=== PATIENT | male | born 1950 | race Caucasian/White ===

== ENCOUNTER 2019-05-03 06:00 | Outpatient (RCR) | payer MEDICARE, OTHER, SELFPAY | END 2019-06-02 00:01 | LOC: APT 06:00 | PROVIDERS: Family Provider Family Medicine; Visit Provider Orthopaedic Surgery | DX: Z47.1 Aftercare following joint replacement surgery (principal); Z96.641 Presence of right artificial hip joint | CPT/HCPCS: 97110 ×5; 97164; 97530 ==

== ENCOUNTER 2019-06-03 06:00 | Outpatient (RCR) | payer MEDICARE, OTHER, SELFPAY | END 2019-07-03 23:59 | disposition home or self-care (01) | LOC: APT 06:00 | PROVIDERS: Family Provider Nurse Practitioner Family; PCP Nurse Practitioner Family; Visit Provider Orthopaedic Surgery | DX: Z96.641 Presence of right artificial hip joint (principal) | CPT/HCPCS: 97110; 97530 ==

== ENCOUNTER → 2019-12-22 10:14 | Outpatient (BNVA) | payer MEDICARE, OTHER, SELFPAY | PROVIDERS: Family Provider Nurse Practitioner Family; PCP Family Medicine; Visit Provider Nurse Practitioner Family | DX: E11.9 Type 2 diabetes mellitus without complications (principal); E78.5 Hyperlipidemia, unspecified; Z12.11 Encounter for screening for malignant neoplasm of colon; Z87.39 Personal history of other diseases of the musculoskeletal system and connective tissue; Z12.5 Encounter for screening for malignant neoplasm of prostate | CPT/HCPCS: 80053; 80061; 83036; 84550; 85025; G0103 ==

== ENCOUNTER → 2021-01-18 09:00 | Outpatient (BNVA) | payer MEDICARE, OTHER, SELFPAY | PROVIDERS: Family Provider Nurse Practitioner Family; PCP Family Medicine; Visit Provider Nurse Practitioner Family | DX: Z00.00 Encounter for general adult medical examination without abnormal findings (principal); E11.9 Type 2 diabetes mellitus without complications; Z87.39 Personal history of other diseases of the musculoskeletal system and connective tissue; E78.5 Hyperlipidemia, unspecified; E55.9 Vitamin D deficiency, unspecified; Z12.5 Encounter for screening for malignant neoplasm of prostate; N18.30 Chronic kidney disease, stage 3 unspecified | CPT/HCPCS: 80053; 80061; 82043; 82306; 83036; 84443; 84550; 85025; G0103 ==

== ENCOUNTER 2023-01-09 07:04 | Emergency (ER) | payer MEDICARE, OTHER, SELFPAY ==
[2023-01-09 07:16] VITALS: BMI 31.5
[2023-01-09 07:20] VITALS: BP 167/102; PULSE 72; RESP 16; TEMP 36.8; O2SAT 99
--- NOTE | 2023-01-09 07:25 | ED_ITS ---
HPI - Extremity Problem General: Chief complaint: Extremity Problem,Nontraumatic Stated complaint: right hip pain Time Seen by Provider: 01/09/23 07:15 Source: patient Mode of arrival: ambulatory Limitations: no limitations History of Present Illness: Patient is a 72-year-old male with past medical history of chronic kidney disease who presents to the emergency room complaining of right hip pain onset 1.5 weeks ago. Patient reports a prior hip replacement approximately 1 year ago, where he completed physical therapy and rehabilitation following the procedure with no complication. 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 The pain has been constant since but he is able to relieve it with rest. He can feel it with any exertion but it is not bothersome and he has not been unable to do daily activities as usual. He has not tried any luii-cvf-[id number] remedies such as ice or anti-inflammatories. He does not report any recent trauma or falls. There is no radiation of the pain and he does not report any extremity numbness or weakness. Denies color/temp changes to lower extremity. No buttock claudication. Describes the pain as a 1/10 in intensity. When asked why he came in today, he states that he figured he would get it checked out. He denies fever, chest pain, shortness of breath, or any other symptoms. MD Complaint: joint pain Onset (ago): week(s) Pain Consistency: constant Location: right Severity scale (1-10): 1 Quality: dull Radiation: none Relieving factors: rest Exacerbating factors: exertion Associated symptoms: Reports no associated symptoms; Deny chest pain, fever(s) or rash Review of Systems Const: Denies: fever(s), chills, body aches, fatigue or malaise Eyes: Denies: change in vision or blurry vision Card: Denies: chest pain, palpitations, irregular heart rhythm, lightheadedness, syncope or dyspnea on exertion Resp: Denies: dyspnea, productive cough or pain on inspiration GI: Denies: abdominal pain, nausea, vomiting, heartburn or diarrhea : Denies: difficulty urinating or dysuria Musc: Reports: joint pain (Right hip); Denies: neck pain, back pain, extremity pain, extremity swelling, joint swelling, joint redness, joint warmth, limited range of motion, muscle cramps or muscle weakness Skin/Breast: Denies: rash Neuro: Denies: headache(s), numbness in extremities, weakness in extremities, sensory changes or difficulty walking PFS ED PFSH: Medical History Chronic kidney disease, stage 3 (moderate) GFR 30-59 Dyslipidemia Enrolled in chronic care management History of kidney stones Obesity, unspecified Surgical History History of right hip replacement (~03/2019) [facility]; Dr Nunez Hx of appendectomy Hx of arthroscopy of right knee Family History Family/Other CAD (coronary artery disease) Dementia Alzheimer's Social History Smoking and tobacco status: never smoked Second hand smoke exposure: No Alcohol intake: never Substance/Drug Use: never Lives independently: Yes Household members: none service: Yes status: Discharged branch: [employer] Current occupational status: retired Current gender identity: Male Special nicole needs: No Agree to transfusion: Yes Physical Exam Const: COMMON NORMALS: no acute distress, patient oriented x3, alert and well nourished GENERAL APPEARANCE: cooperative ORIENTATION/CONSCIOUSNESS: Yes awake, Yes oriented to person, Yes oriented to place and Yes oriented to time HENMT: COMMON NORMALS: normocephalic and atraumatic HEAD & SCALP: normocephalic and atraumatic Neck/C-Spine: COMMON NORMALS: full ROM, no lymphadenopathy, supple and no meningeal signs Chest: COMMONS NORMALS: normal inspection of the chest Resp: COMMON NORMALS: normal respiratory effort and clear to auscultation bilaterally AUSCULTATION: clear to auscultation bilaterally Cardio: COMMON NORMALS: regular rate and regular rhythm RATE: regular rate RHYTHM: regular rhythm GI: COMMON NORMALS: Normal to inspection, nondistended, normoactive bowel sounds present, Soft to palpation, non-tender, No hepatosplenomegaly present and no masses PALPATION: Yes Soft to palpation and Yes No hepatosplenomegaly present : COMMON NORMALS: Yes no CVA tenderness BLADDER/KIDNEY EXAM: Yes no CVA tenderness Back/Pelvis: COMMON NORMALS: no CVA tenderness and thoracic and lumbar spine normal to inspection Extremity: COMMON NORMALS: normal to inspection, full ROM and no joint enlargement RIGHT LOWER EXTREMITY: Yes hip joint Right hip: Yes palpation (No ntender to palpation), Yes ROM (Normal active and passive range of motion with 5/5 strength bilat), Yes neurovascular exam (Neurovascularly intact) and Yes special tests (Negative straight leg raise) Neuro: COMMON NORMALS: patient oriented x3 SENSORIUM/ORIENTATION: Yes alert, Yes oriented to person, Yes oriented to place and Yes oriented to time MENINGEAL SIGNS: Yes no meningeal signs Skin: COMMON NORMALS: no rashes or lesions noted GENERAL SKIN EXAM: no rashes or lesions noted Course Vital Signs: Vital signs: Vital Signs Temperature 98.2 F 01/09/23 07:20 Pulse Rate 72 01/09/23 07:20 Respiratory Rate 16 01/09/23 07:20 Blood Pressure 167/102 01/09/23 07:20 Pulse Oximetry 99 01/09/23 07:20 Oxygen Delivery Me thod Room Air 01/09/23 07:20 MDM - Extremity (Nontraumatic) Medical Decision Making XR negative. Patient rating pain at a 1/10. He has no neurologic complaints. By history/exam I have no suspicion for aortoiliac insufficiency. At this time he was recommended to start taking some OTC medications for his comfort as well as ice/heat. Recommend he follow up with PCP in 1-2 weeks if symptoms persist. Discharge Plan Discharge Patient Disposition: Home Clinical Impression: Acute pain of right hip Condition: Stable Prescriptions: No Action epinephrine 0.3 mg/0.3 mL auto-injector 0.3 mg IM ONCE PRN (Reason: severe reaction to bee stings) metformin 500 mg tablet 500 mg PO DAILY Qty: 90 1RF (DME) Blood Glucose Test Strip See Rx Instructions .ROUTE .MEDSUPPLY Qty: 100 11RF Rx Instructions: use test strips as directed to check blood sugar twice daily Adacel(Tdap Adolesn/Adult)(PF) 2 Lf-(2.5-5-3-5 mcg)-5Lf/0.5 mL syringe 0.5 ml IM ONCE Qty: 0.5 0RF sulfamethoxazole-trimethoprim [Bactrim DS] 800-160 mg tablet 1 tab PO BID Qty: 20 0RF Discharge Orders: Discharge ED (Routine); Ordered 01/09/23 Ordered By: Elizabeth Coto Referrals: Kathleen Nam MD [Primary Care Provider] - Patient Instructions: Hip Pain (ED) Activity Restrictions/Additional Instructions: As we discussed, your imaging today was normal. You may take [id number] Tylenol or anti-inflammatories as needed for pain. Use ice/heat as needed. Gentle range of motion exercises as tolerated. If pain persists, follow-up with your primary care provider. Coding Level of Care Code ED Machine Operator Transplanter for Barbara Flor
--- NOTE | 2023-01-09 07:27 | XR_ITS ---
WS: [id number] XR hip RT 2-3V wo/w pel* [id number] REASON FOR EXAM: pain FINDINGS: No comparison examination. Total right hip arthroplasty. Prosthetic components are intact and in proper position and alignment. No bone abnormality. No soft tissue abnormality. IMPRESSION: Total right hip arthroplasty with no acute abnormality.
[2023-01-09 08:30] VITALS: BP 167/102; PULSE 88; O2SAT 98
== END 2023-01-09 08:21 | disposition home or self-care (01) ==
PROVIDERS: Emergency Provider Physician Assistant; PCP Family Medicine
DX: M25.551 Pain in right hip (principal); N18.30 Chronic kidney disease, stage 3 unspecified; E78.5 Hyperlipidemia, unspecified; Z79.899 Other long term (current) drug therapy; Z79.84 Long term (current) use of oral hypoglycemic drugs
CPT/HCPCS: 73502; 99283

== ENCOUNTER 2023-08-09 16:56 | Emergency (ER) | payer MEDICARE, OTHER, SELFPAY ==
[2023-08-09 16:58] VITALS: BP 202/94; PULSE 60; RESP 16; TEMP 36.7; O2SAT 99
--- NOTE | 2023-08-09 17:14 | W.ED.BACK ---
Documented by User: ROSI Kaplan 08/09/23 18:33 HPI - Back Pain/Injury General: Chief Complaint: Back Pain/Injury Stated Complaint: right side pain Time Seen by Provider: 08/09/23 17:03 Source: patient and other (friend) Mode of arrival: ambulatory Limitations: no limitations History of Present Illness: Patient is a 72-year-old male presents the emergency department complaining of right lower back and flank pain onset 10 days. Patient states he has a history of kidney stones and while this does not feel entirely similar, he is also not sure. He states he has not had a kidney stone since being started on allopurinol, which he notes recently stopping. He reported he initially had nausea, but currently does not have this symptom. He denies any fever, dysuria, hematuria, radiation of the pain, vomiting, bowel changes, or any other symptoms. Patient states that the pain began suddenly while he was driving in his truck, and has been constant ever since. Denies any strenuous lifting or prior surgeries to the back. Pertinent past history: kidney stones Onset (ago): day(s) (10) Timing: constant Similar Symptoms Previously: Yes Location: right flank and right lower back Radiation: none Exacerbating factors: movement Context: other (At rest) Associated symptoms: Reports nausea; Deny abdominal pain, chills, dysuria, fever(s), hematuria, urinary urgency or vomiting Review of Systems General: Reports: 10 or more systems reviewed and unremarkable except in HPI and below Const: Denies: fever(s), chills, change in appetite, change in weight or diaphoresis ENMT: Denies: throat pain or hoarseness Card: Denies: chest pain, palpitations or lightheadedness Resp: Denies: dyspnea, productive cough or wheezing GI: Reports: nausea; Denies: abdominal pain, vomiting, diarrhea, constipation, bloating, change in stool character or hematochezia : Reports: flank pain (Right); Denies: difficulty urinating, dysuria, urinary frequency, urinary urgency, urinary hesitancy, difficulty starting urination, hematuria or testicular pain Musc: Reports: back pain (Right lower); Denies: neck pain Skin/Breast: Denies: rash or new lesions Neuro: Denies: headache(s) or dizziness [facility] PFSH: Medical History Obesity, unspecified Chronic kidney disease, stage 3 (moderate) GFR 30-59 History of kidney stones Enrolled in chronic care management Dyslipidemia Surgical History Hx of arthroscopy of right knee Hx of appendectomy History of right hip replacement (~03/2019) [facility]; Dr Nunez Family History Family/Other CAD (coronary artery disease) Dementia Alzheimer's Social History Smoking and tobacco/nicotine status: never used tobacco/nicotine Second hand smoke exposure: No Alcohol intake: never Substance/Drug Use: never Lives independently: Yes Household members: none service: Yes status: Discharged branch: [employer] Current occupational status: retired Current gender identity: Male Special nicole needs: No Agree to transfusion: Yes Physical Exam Const: COMMON NORMALS: no acute distress, average body habitus, patient oriented x3, no limitations, healthy appearing, alert and well nourished GENERAL APPEARANCE: cooperative and comfortable ORIENTATION/CONSCIOUSNESS: Yes awake HENMT: COMMON NORMALS: normocephalic, atraumatic, hearing grossly normal bilaterally, external ears normal, Normal external nose present, Normal nasal mucous membranes and turbinates present and moist oral mucous membranes HEAD & SCALP: normocephalic and atraumatic NOSE: Normal external nose present and Normal nasal mucous membranes and turbinates present EXTERNAL EAR: Yes external ears normal Eye: COMMON NORMALS: EOMs intact bilaterally, conjunctivae normal and normal visual lima by confrontation CONJUNCTIVA: Yes conjunctivae normal Neck/C-Spine: COMMON NORMALS: full ROM, supple, no meningeal signs and no JVD Resp: COMMON NORMALS: normal respiratory effort, No retractions, No use of accessory muscles and clear to auscultation bilaterally AUSCULTATION: clear to auscultation bilaterally, no crackles, no rales, no rhonchi and no wheezes Cardio: COMMON NORMALS: no JVD, regular rate, regular rhythm, S1 normal heart sound present, S2 normal heart sound present, No gallops present (Cardio), No clicks present (Cardio), No murmurs present (Cardio), No rub (Cardio) and Peripheral pulses 2+ throughout RATE: regular rate RHYTHM: regular rhythm HEART SOUNDS: S1 normal heart sound present and S2 normal heart sound present PERIPHERAL PULSES: Peripheral pulses 2+ throughout GI: COMMON NORMALS: Normal to inspection, nondistended, normoactive bowel sounds present, Soft to palpation, non-tender, No hepatosplenomegaly present and no masses AUSCULTATION: Yes normoactive bowel sounds PALPATION: Yes Soft to palpation, No Guarding due to palpation present (GI), No Rigid due to palpation and Yes No hepatosplenomegaly present RECTAL EXAM: Yes deferred : COMMON NORMALS: Yes no CVA tenderness BLADDER/KIDNEY EXAM: Yes no CVA tenderness Back/Pelvis: COMMON NORMALS: no CVA tenderness, thoracic and lumbar spine normal to inspection and thoraco-lumbar ROM normal OTHER: Mild reproducible tenderness to palpation of the right paralumbar muscles and right flank Extremity: COMMON NORMALS: normal to inspection and full ROM Neuro: COMMON NORMALS: patient oriented x3, moves all extremities, no focal motor deficits and no sensory deficits noted SENSORIUM/ORIENTATION: Yes alert MENINGEAL SIGNS: Yes no meningeal signs Psych: COMMON NORMALS: mental status grossly normal, cooperative and speech normal SPEECH: Yes normal speech Skin: COMMON NORMALS: no rashes or lesions noted GENERAL SKIN EXAM: no rashes or lesions noted Course Vital Signs: Vital signs: Vital Signs Temperature 98.0 F 08/09/23 16:58 Pulse Rate 68 08/09/23 17:49 Respiratory Rate 16 08/09/23 17:49 Blood Pressure 162/79 08/09/23 17:49 Pulse Oximetry 98 08/09/23 17:49 Oxygen Delivery Me thod Room Air 08/09/23 16:58 MDM - Back Pain/Injury Medical Decision Making This patient was seen and evaluated in the emergency department today for 10 days of right low back and flank pain. Patient reports he has had multiple kidney stones in the past and recently was taken off allopurinol, which she states was keeping him from having the stones. On arrival patient's blood pressure was elevated, but after administration of IV fluids and recheck came down to 162/79. Otherwise his vitals were normal including afebrile. On examination, he was minimally tender to palpation of the right lower back region, but did not endorse any urinary symptoms and states that his pain has more or less been controlled. CBC and CMP overall unremarkable. Urinalysis showed evidence of 3+ blood and greater than [address] abdomen without contrast showed a 3.7 mm obstructing distal right ureteral stone with evidence of hydronephrosis of the right kidney and ureter. Because the stone does not appear to be infected, I believe patient can follow-up with urology on an outpatient basis and he will be discharged with as needed pain medications, Zofran, and Flomax. He is instructed to drink plenty of fluids and to return if his symptoms worsen or he develops any fevers or significant worsening of his pain. He agrees with this plan, and friend present states that they are going to establish with a primary doctor so that he can undergo full evaluation of any chronic medical problems. I informed the patient of the incidental finding of coronary arterial calcifications, to which he and friend state they will address with primary care. Case management consult put in for urology follow-up. Shot of IV Toradol be given prior to discharge. Medical Records I reviewed the patient's medical records. Labs I reviewed the patient's lab results. 08/09/23 17:24 08/09/23 17:24 Radiology Impressions Abdomen/Pelvis CT 08/09/23 17:29 IMPRESSION: 1. 3.7 mm obstructing right distal ureteric stone with associated moderate hydronephrosis of the right kidney and hydroureter. There are also multiple calcified stones within the renal pelvis. 2. Nonobstructing calcification within the left kidney. 3. Moderate coronary arterial calcification, indicating the presence of coronary artery disease. If the patient has associated symptoms recommend management as per chest pain guidelines. If the patient is asymptomatic consider reviewing modifiable cardiovascular risk factors and managing as per guidelines for primary prevention Laboratory Results WBC 8.19 10^3/uL (3.29-11.43) 08/09/23 17:24 RBC 5.22 10^6/uL (3.85-5.65) 08/09/23 17:24 Hgb 15.60 g/dL (11.27-16.99) 08/09/23 17:24 Hct 47.5 % (37-53) 08/09/23 17:24 MCV 91.0 fl (82-101) 08/09/23 17:24 MCH 29.9 pg (27-33) 08/09/23 17:24 MCHC 32.8 g/dL (30-55) 08/09/23 17:24 RDW 13.1 % (12.1-15.1) 08/09/23 17:24 Plt Count 187 10^3/cmm (157-399) 08/09/23 17:24 MPV 10.6 fL (7.4-10.4) H 08/09/23 17:24 Neut % (Auto) 85.1 % 08/09/23 17:24 Lymph % (Auto) 10.1 % 08/09/23 17:24 Granite % (Auto) 3.5 % 08/09/23 17:24 Eos % (Auto) 0.6 % 08/09/23 17:24 Baso % (Auto) 0.5 % 08/09/23 17:24 Neut # (Auto) 6.96 10^3/uL (1.8-7.7) 08/09/23 17:24 Lymph # (Auto) 0.8 10^3/uL (0.8-4.8) 08/09/23 17:24 Granite # (Auto) 0.3 10^3/uL (0.2-0.9) 08/09/23 17:24 Eos # (Auto) 0.1 10^3/uL (0.0-0.8) 08/09/23 17:24 Baso # (Auto) 0.0 10^3/uL (0.0-0.1) 08/09/23 17:24 Nucleated RBC % (auto) 0 % 08/09/23 17:24 Nucleated RBCs # 0.0 /100WBC 08/09/23 17:24 Sodium 137 mmol/L (136-145) 08/09/23 17:24 Potassium 4.4 mmol/L (3.5-5.1) 08/09/23 17:24 Chloride 101 mmol/L (98-107) 08/09/23 17:24 Carbon Dioxide 21 mmol/L (22-29) L 08/09/23 17:24 Anion Gap 19.4 (5-19) H 08/09/23 17:24 BUN 21 mg/dL (8-23) 08/09/23 17:24 Creatinine 1.3 mg/dL (0.7-1.2) H 08/09/23 17:24 GFR Calculation Not Reportable 08/09/23 17:24 Glucose 119 mg/dL (65-115) H 08/09/23 17:24 Calculated Osmolality 288 mOsm/kg (285-295) 08/09/23 17:24 Calcium 8.7 mg/dL (8.5-10.5) 08/09/23 17:24 Total Bilirubin 0.9 mg/dL (0.15-1.2) 08/09/23 17:24 AST 16 U/L (0-40) 08/09/23 17:24 ALT 15 U/L (0-41) 08/09/23 17:24 Alkaline Phosphatase 66 U/L (40-130) 08/09/23 17:24 Total Protein 6.4 g/dL (6.6-8.7) L 08/09/23 17:24 Albumin 4.1 g/dL (3.5-5.2) 08/09/23 17:24 Globulin 2.3 g/dL (1.3-4.6) 08/09/23 17:24 Urine Color Yellow (Yellow) 08/09/23 17:30 Urine Appearance Cloudy (CLEAR) A 08/09/23 17:30 Urine pH 5 (5-7) 08/09/23 17:30 Ur Specific [place] 1.025 (1.005-1.030) 08/09/23 17:30 Urine Protein 1+ (Negative) H 08/09/23 17:30 Urine Glucose (UA) Norm (Normal) 08/09/23 17:30 Urine Ketones 2+ (Negative) H 08/09/23 17:30 Urine Blood 3+ (Negative) H 08/09/23 17:30 Urine Nitrate Negative (Negative) 08/09/23 17:30 Urine Bilirubin 1+ (Negative) H 08/09/23 17:30 Urine Urobilinogen 1 mg/dL (Negative) H 08/09/23 17:30 Ur Leukocyte Esterase 1+ (Negative) H 08/09/23 17:30 Urine RBC >100 /hpf (0-2) H 08/09/23 17:30 Urine WBC 5-10 /hpf (0-5) H 08/09/23 17:30 Ur Squamous Epith Cells 0-4 /hpf (0-5) H 08/09/23 17:30 Amorphous Sediment Not Reportable 08/09/23 17:30 Urine Bacteria 1+ /hpf (NONE) H 08/09/23 17:30 All radiology interpretation(s) finalized by discharge Discharge Plan Discharge Patient Disposition: Home Clinical Impression: Kidney stone Condition: Stable Prescriptions: New hydrocodone-acetaminophen 5-325 mg tablet 1 tab PO Q6H PRN (Reason: pain) Qty: 14 0RF ondansetron 4 mg tablet,disintegrating 4 mg PO Q6H PRN (Reason: nausea and vomiting) Qty: 14 0RF Flomax 0.4 mg capsule 0.4 mg PO DAILY Qty: 5 0RF No Action epinephrine 0.3 mg/0.3 mL auto-injector 0.3 mg IM ONCE PRN (Reason: severe reaction to bee stings) metformin 500 mg tablet 500 mg PO DAILY Qty: 90 1RF (DME) Blood Glucose Test Strip See Rx Instructions .ROUTE .MEDSUPPLY Qty: 100 11RF Rx Instructions: use test strips as directed to check blood sugar twice daily Adacel(Tdap Adolesn/Adult)(PF) 2 Lf-(2.5-5-3-5 mcg)-5Lf/0.5 mL syringe 0.5 ml IM ONCE Qty: 0.5 0RF sulfamethoxazole-trimethoprim [Bactrim DS] 800-160 mg tablet 1 tab PO BID Qty: 20 0RF Discharge Orders: Discharge ED (Routine); Ordered 08/09/23 Ordered By: Ramona Mckoy Referrals: Kathleen Nam MD [Primary Care Provider] - Discharge Diet: Advance as tolerated Discharge Activity: Resume usual activity Patient Instructions: Kidney Stones (ED), Opioid Safety Activity Restrictions/Additional Instructions: Hydrocodone for pain as needed. Zofran for nausea as needed. Take Flomax as directed. Plenty fluids. Follow-up with urology as instructed. Establish care with primary and follow-up. Return if you develop any new or worsening symptoms. 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 [employer] Documented by User: Brendan Dong DO 08/12/23 06:01 HPI - Back Pain/Injury General: Chief Complaint: Back Pain/Injury Stated Complaint: right side pain Time Seen by Provider: 08/09/23 17:03 [facility] PFSH: Medical History Obesity, unspecified Chronic kidney disease, stage 3 (moderate) GFR 30-59 History of kidney stones Enrolled in chronic care management Dyslipidemia Surgical History Hx of arthroscopy of right knee Hx of appendectomy History of right hip replacement (~03/2019) [facility]; Dr Nunez Family History Family/Other CAD (coronary artery disease) Dementia Alzheimer's Social History Smoking and tobacco/nicotine status: never used tobacco/nicotine Second hand smoke exposure: No Alcohol intake: never Substance/Drug Use: never Lives independently: Yes Household members: none service: Yes status: Discharged branch: [employer] Current occupational status: retired Current gender identity: Male Special nicole needs: No Agree to transfusion: Yes Course Vital Signs: Vital signs: Vital Signs Temperature 98.0 F 08/09/23 16:58 Pulse Rate 68 08/09/23 17:49 Respiratory Rate 16 08/09/23 17:49 Blood Pressure 162/79 08/09/23 17:49 Pulse Oximetry 98 08/09/23 17:49 Oxygen Delivery Me thod Room Air 08/09/23 16:58 MDM - Back Pain/Injury Medical Decision Making This patient was seen and evaluated in the emergency department today for 10 days of right low back and flank pain. Patient reports he has had multiple kidney stones in the past and recently was taken off allopurinol, which she states was keeping him from having the stones. On arrival patient's blood pressure was elevated, but after administration of IV fluids and recheck came down to 162/79. Otherwise his vitals were normal including afebrile. On examination, he was minimally tender to palpation of the right lower back region, but did not endorse any urinary symptoms and states that his pain has more or less been controlled. CBC and CMP overall unremarkable. Urinalysis showed evidence of 3+ blood and greater than [address] abdomen without contrast showed a 3.7 mm obstructing distal right ureteral stone with evidence of hydronephrosis of the right kidney and ureter. Because the stone does not appear to be infected, I believe patient can follow-up with urology on an outpatient basis and he will be discharged with as needed pain medications, Zofran, and Flomax. He is instructed to drink plenty of fluids and to return if his symptoms worsen or he develops any fevers or significant worsening of his pain. He agrees with this plan, and friend present states that they are going to establish with a primary doctor so that he can undergo full evaluation of any chronic medical problems. I informed the patient of the incidental finding of coronary arterial calcifications, to which he and friend state they will address with primary care. Case management consult put in for urology follow-up. Shot of IV Toradol be given prior to discharge. Chart reviewed Labs 08/09/23 17:24 08/09/23 17:24 Radiology Impressions Abdomen/Pelvis CT 08/09/23 17:29 IMPRESSION: 1. 3.7 mm obstructing right distal ureteric stone with associated moderate hydronephrosis of the right kidney and hydroureter. There are also multiple calcified stones within the renal pelvis. 2. Nonobstructing calcification within the left kidney. 3. Moderate coronary arterial calcification, indicating the presence of coronary artery disease. If the patient has associated symptoms recommend management as per chest pain guidelines. If the patient is asymptomatic consider reviewing modifiable cardiovascular risk factors and managing as per guidelines for primary prevention Laboratory Results WBC 8.19 10^3/uL (3.29-11.43) 08/09/23 17:24 RBC 5.22 10^6/uL (3.85-5.65) 08/09/23 17:24 Hgb 15.60 g/dL (11.27-16.99) 08/09/23 17:24 Hct 47.5 % (37-53) 08/09/23 17:24 MCV 91.0 fl (82-101) 08/09/23 17: MCH 29.9 pg (27-33) 08/09/23 17:24 MCHC 32.8 g/dL (30-55) 08/09/23 17:24 RDW 13.1 % (12.1-15.1) 08/09/23 17:24 Plt Count 187 10^3/cmm (157-399) 08/09/23 17:24 MPV 10.6 fL (7.4-10.4) H 08/09/23 17:24 Neut % (Auto) 85.1 % 08/09/23 17:24 Lymph % (Auto) 10.1 % 08/09/23 17:24 Granite % (Auto) 3.5 % 08/09/23 17:24 Eos % (Auto) 0.6 % 08/09/23 17:24 Baso % (Auto) 0.5 % 08/09/23 17:24 Neut # (Auto) 6.96 10^3/uL (1.8-7.7) 08/09/23 17:24 Lymph # (Auto) 0.8 10^3/uL (0.8-4.8) 08/09/23 17:24 Granite # (Auto) 0.3 10^3/uL (0.2-0.9) 08/09/23 17:24 Eos # (Auto) 0.1 10^3/uL (0.0-0.8) 08/09/23 17:24 Baso # (Auto) 0.0 10^3/uL (0.0-0.1) 08/09/23 17:24 Nucleated RBC % (auto) 0 % 08/09/23 17:24 Nucleated RBCs # 0.0 /100WBC 08/09/23 17:24 Sodium 137 mmol/L (136-145) 08/09/23 17:24 Potassium 4.4 mmol/L (3.5-5.1) 08/09/23 17:24 Chloride 101 mmol/L (98-107) 08/09/23 17:24 Carbon Dioxide 21 mmol/L (22-29) L 08/09/23 17:24 Anion Gap 19.4 (5-19) H 08/09/23 17:24 BUN 21 mg/dL (8-23) 08/09/23 17:24 Creatinine 1.3 mg/dL (0.7-1.2) H 08/09/23 17:24 GFR Calculation Not Reportable 08/09/23 17:24 Glucose 119 mg/dL (65-115) H 08/09/23 17:24 Calculated Osmolality 288 mOsm/kg (285-295) 08/09/23 17:24 Calcium 8.7 mg/dL (8.5-10.5) 08/09/23 17:24 Total Bilirubin 0.9 mg/dL (0.15-1.2) 08/09/23 17:24 AST 16 U/L (0-40) 08/09/23 17:24 ALT 15 U/L (0-41) 08/09/23 17:24 Alkaline Phosphatase 66 U/L (40-130) 08/09/23 17:24 Total Protein 6.4 g/dL (6.6-8.7) L 08/09/23 17: Albumin 4.1 g/dL (3.5-5.2) 08/09/23 17:24 Globulin 2.3 g/dL (1.3-4.6) 08/09/23 17:24 Urine Color Yellow (Yellow) 08/09/23 17:30 Urine Appearance Cloudy (CLEAR) A 08/09/23 17:30 Urine pH 5 (5-7) 08/09/23 17:30 Ur Specific [place] 1.025 (1.005-1.030) 08/09/23 17:30 Urine Protein 1+ (Negative) H 08/09/23 17:30 Urine Glucose (UA) Norm (Normal) 08/09/23 17:30 Urine Ketones 2+ (Negative) H 08/09/23 17:30 Urine Blood 3+ (Negative) H 08/09/23 17:30 Urine Nitrate Negative (Negative) 08/09/23 17:30 Urine Bilirubin 1+ (Negative) H 08/09/23 17:30 Urine Urobilinogen 1 mg/dL (Negative) H 08/09/23 17:30 Ur Leukocyte Esterase 1+ (Negative) H 08/09/23 17:30 Urine RBC >100 /hpf (0-2) H 08/09/23 17:30 Urine WBC 5-10 /hpf (0-5) H 08/09/23 17:30 Ur Squamous Epith Cells 0-4 /hpf (0-5) H 08/09/23 17:30 Amorphous Sediment Not Reportable 08/09/23 17:30 Urine Bacteria 1+ /hpf (NONE) H 08/09/23 17:30 Discharge Plan Discharge Patient Disposition: Home Clinical Impression: Kidney stone Condition: Stable Prescriptions: New hydrocodone-acetaminophen 5-325 mg tablet 1 tab PO Q6H PRN (Reason: pain) Qty: 14 0RF ondansetron 4 mg tablet,disintegrating 4 mg PO Q6H PRN (Reason: nausea and vomiting) Qty: 14 0RF Flomax 0.4 mg capsule 0.4 mg PO DAILY Qty: 5 0RF No Action epinephrine 0.3 mg/0.3 mL auto-injector 0.3 mg IM ONCE PRN (Reason: severe reaction to bee stings) metformin 500 mg tablet 500 mg PO DAILY Qty: 90 1RF (DME) Blood Glucose Test Strip See Rx Instructions .ROUTE .MEDSUPPLY Qty: 100 11RF Rx Instructions: use test strips as directed to check blood sugar twice daily Adacel(Tdap Adolesn/Adult)(PF) 2 Lf-(2.5-5-3-5 mcg)-5Lf/0.5 mL syringe 0.5 ml IM ONCE Qty: 0.5 0RF sulfamethoxazole-trimethoprim [Bactrim DS] 800-160 mg tablet 1 tab PO BID Qty: 20 0RF Discharge Orders: Discharge ED (Routine); Ordered 08/09/23 Ordered By: Ramona Mckoy Referrals: Kathleen Nam MD [Primary Care Provider] - Discharge Diet: Advance as tolerated Discharge Activity: Resume usual activity Patient Instructions: Kidney Stones (ED), Opioid Safety Activity Restrictions/Additional Instructions: Hydrocodone for pain as needed. Zofran for nausea as needed. Take Flomax as directed. Plenty fluids. Follow-up with urology as instructed. Establish care with primary and follow-up. Return if you develop any new or worsening symptoms. 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
[2023-08-09 17:29] LABS: Basophils % 0.5 %; Eosinophils # 0.1 10^3/uL (0.0-0.8); Eosinophils % 0.6 %; Hematocrit 47.5 % (37-53); Lymphocytes # 0.8 10^3/uL (0.8-4.8); Lymphocytes % 10.1 %; Mean Corpuscular HGB Conc 32.8 g/dL (30-55); Mean Corpuscular Hemoglobin 29.9 pg (27-33); Mean Platelet Volume 10.6 fL (7.4-10.4); Monocytes # 0.3 10^3/uL (0.2-0.9); Monocytes % 3.5 %; Neutrophils # 6.96 10^3/uL (1.8-7.7); Neutrophils % 85.1 %; Nucleated Red Blood Cells % 0 %; Platelet Count 187 10^3/cmm (157-399); Red Blood Count 5.22 10^6/uL (3.85-5.65); Red Cell Distribution Width 13.1 % (12.1-15.1); White Blood Count 8.19 10^3/uL (3.29-11.43)
--- NOTE | 2023-08-09 17:29 | CTR_ITS ---
PROCEDURE INFORMATION: Exam: CT Abdomen And Pelvis Without Contrast Exam date and time: 08/09/2023 5:36 PM Age: 72 years old Clinical indication: Abdominal pain; Flank; Right; Prior surgery; Surgery date: 6+ months; Surgery type: Appy; Additional info: Right low back/flank pain + HX of kidney stones TECHNIQUE: Imaging protocol: Computed tomography of the abdomen and pelvis without contrast. Radiation optimization: All CT scans at this facility use at least one of these dose optimization techniques: automated exposure control; mA and/or kV adjustment per patient size (includes targeted exams where dose is matched to clinical indication); or iterative reconstruction. COMPARISON: CR XR hip RT 2-3V wo/w pel* [id number] 01/09/2023 7:37 AM RADIATION DOSE METRICS: Total DLP (mGy-cm): 729.69 FINDINGS: Lungs: Lung bases are unremarkable. Coronary arteries: Moderate coronary arterial calcification, indicating the presence of coronary artery disease. Liver: The liver is unremarkable. Gallbladder and bile ducts: No intrahepatic or extrahepatic biliary ductal dilatation. The gallbladder is distended with some sludge. Pancreas: The pancreas is unremarkable. Spleen: The spleen is unremarkable. There are multiple calcified splenic granulomas noted. Adrenal glands: Adrenal glands are unremarkable. Kidneys and ureters: There is dense calcification within the left kidney (small staghorn calculus) there is no hydronephrosis. There is perirenal stranding. The left kidney is enlarged with several calcified renal calculi and associated moderate hydronephrosis with hydroureter in the proximal 3rd, distally, there is stranding surrounding the ureter with a 3.7 mm obstructing distal calculus prior to the UV junction. Stomach and bowel: The stomach is not fully distended. There is no evidence of obstruction. There is mild haziness of the mesentery indicating edema or inflammatory process. There is an extensive amount of feces in the entire colon. Diverticulosis without evidence of diverticulitis. Appendix: Post appendectomy Intraperitoneal space: No free intraperitoneal air. No fluid collection. Vasculature: There is no aortic aneurysm. There is severe atherosclerotic disease. Lymph nodes: There are no enlarged nodes. Urinary bladder: Is not fully distended however contains dense fluid indicating blood in the bladder. Reproductive: The prostate is enlarged. Bones/joints: Patient is status post right total hip arthroplasty. The hardware is intact. There are no fractures. There is degenerative disease of the spine. Soft tissues: Unremarkable. CT/CT abdomen pelvis wo con [id number] IMPRESSION: 1. 3.7 mm obstructing right distal ureteric stone with associated moderate hydronephrosis of the right kidney and hydroureter. There are also multiple calcified stones within the renal pelvis. 2. Nonobstructing calcification within the left kidney. 3. Moderate coronary arterial calcification, indicating the presence of coronary artery disease. If the patient has associated symptoms recommend management as per chest pain guidelines. If the patient is asymptomatic consider reviewing modifiable cardiovascular risk factors and managing as per guidelines for primary prevention
[2023-08-09] MEDS: sodium chloride 0.9% 1,000 ML 999 ML IV (17:31)
[2023-08-09 17:43] LABS: Urine Appearance Cloudy (CLEAR); Urine Color Yellow (Yellow); pH Urine 5 (5-7)
[2023-08-09 17:44] LABS: Add Urine Microscopic? YES; Bilirubin Urine 1+ (Negative); Blood Urine 3+ (Negative); Glucose Urine UA Norm (Normal); Ketones Urine 2+ (Negative); Leukocyte Esterase Urine 1+ (Negative); Nitrate Urine Negative (Negative); Protein Urine 1+ (Negative); Specific Gravity, Urine 1.025 (1.005-1.030); Urobilinogen Urine 1 mg/dL (Negative)
[2023-08-09 17:46] LABS: Add Urine Culture? Yes; Bacteria Urine 1+ /hpf; RBC Urine >100 /hpf (0-2); Squamous Epithelial Cell Urine 0-4 /hpf (0-5)
[2023-08-09 17:49] VITALS: BP 162/79; PULSE 68; RESP 16; O2SAT 98
[2023-08-09 17:51] LABS: Alanine Aminotransferase 15 U/L (0-41); Albumin Level 4.1 g/dL (3.5-5.2); Alkaline Phosphatase 66 U/L (40-130); Anion Gap 19.4 (5-19); Aspartate Amino Transferase 16 U/L (0-40); Blood Urea Nitrogen 21 mg/dL (8-23); Calcium 8.7 mg/dL (8.5-10.5); Carbon Dioxide 21 mmol/L (22-29); Chloride 101 mmol/L (98-107); Globulin 2.3 g/dL (1.3-4.6); Glucose 119 mg/dL (65-115); Osmolality Calculated 288 mOsm/kg (285-295); Potassium 4.4 mmol/L (3.5-5.1); Sodium 137 mmol/L (136-145); Total Bilirubin 0.9 mg/dL (0.15-1.2); Total Protein 6.4 g/dL (6.6-8.7)
[2023-08-09] MEDS: ketorolac 30 mg/mL INJ 15 MG IVP (18:28)
== END 2023-08-09 18:34 | disposition home or self-care (01) ==
PROVIDERS: Emergency Provider Physician Assistant; PCP Family Medicine
DX: N13.2 Hydronephrosis with renal and ureteral calculous obstruction (principal); Z79.84 Long term (current) use of oral hypoglycemic drugs; N18.30 Chronic kidney disease, stage 3 unspecified; E78.5 Hyperlipidemia, unspecified; Z87.442 Personal history of urinary calculi
CPT/HCPCS: 74176; 80053; 81001; 85025; 87086; 96361; 96374; 99285; J1885; J7030

== ENCOUNTER → 2023-10-24 09:04 | Outpatient (BNVA) | payer MEDICARE, OTHER, SELFPAY | PROVIDERS: PCP Family Medicine; Visit Provider Family Medicine | DX: Z12.5 Encounter for screening for malignant neoplasm of prostate (principal); E11.9 Type 2 diabetes mellitus without complications; E78.5 Hyperlipidemia, unspecified | CPT/HCPCS: 80053; 80061; 83036; 84443; 85025; G0103 ==

== ENCOUNTER → 2024-10-07 11:36 | Outpatient (BNVA) | payer OTHER, SELFPAY | PROVIDERS: PCP Nurse Practitioner Family; Visit Provider Nurse Practitioner Family | DX: E11.9 Type 2 diabetes mellitus without complications (principal); F03.90 Unspecified dementia, unspecified severity, without behavioral disturbance, psychotic disturbance, mood disturbance, and anxiety | CPT/HCPCS: 80053; 80061; 83036; 84443; 85025 ==

== ENCOUNTER → 2025-03-24 12:05 | Outpatient (BNVA) | payer OTHER, SELFPAY | PROVIDERS: PCP Nurse Practitioner Family; Visit Provider Nurse Practitioner Family | DX: E11.9 Type 2 diabetes mellitus without complications (principal); F03.90 Unspecified dementia, unspecified severity, without behavioral disturbance, psychotic disturbance, mood disturbance, and anxiety | CPT/HCPCS: 80053; 80061; 83036; 84443; 85025 ==